=== PATIENT | male | born 1945 | race Caucasian/White ===

== ENCOUNTER 2018-02-15 12:02 | Day surgery (SDC) | payer MEDICARE, BC ==
[2018-02-12 08:31] VITALS: BP 150/87
[2018-02-12 09:11] LABS: ALANINE AMINOTRANSFERASE 33 U/L (12-78); ALBUMIN 3.9 g/dL (3.4-5.0); ANION GAP 10 mmol/L (5-15); CALCIUM 8.6 mg/dL (8.5-10.1); CHLORIDE 111 mmol/L (98-107); CREATININE 0.97 mg/dL (0.7-1.3)
[2018-02-12 09:13] LABS: ALKALINE PHOSPHATASE 56 U/L (45-117); BILIRUBIN,TOTAL 0.8 mg/dL (0.2-1.0); TOTAL PROTEIN 6.6 g/dL (6.4-8.2)
[~2018-02-15] VITALS: Ht 182.9 cm; Wt 118.7 kg
[~2018-02-15 12:02] MED LIST: ASPI-496 PO; IBUP-1221 PO; LISI-167 PO; ROSU5TAB PO
[2018-02-15] MEDS ORDERED: BACITRACIN 50,000 UNIT ONE (12:22)
[2018-02-15] MEDS ORDERED: BUPIVACAINE/PF-EPI 0.25% 1:200K ONE (12:22)
[2018-02-15] MEDS ORDERED: LACTATED RINGERS 1,000 ML IV SCH (12:23)
[2018-02-15] MEDS ORDERED: FENTANYL PF 250 MCG/5ML ONE (13:21)
[2018-02-15] MEDS ORDERED: MIDAZOLAM 1 MG/ML, 2ML ONE (13:21)
[2018-02-15] MEDS ORDERED: ACETAMINOPHEN 500 MG TABLET ONE (13:24)
[2018-02-15] MEDS ORDERED: GABAPENTIN 300 MG CAPSULE ONE (13:24)
[2018-02-15] MEDS ORDERED: ONDANSETRON ODT 8 MG ONE (13:24)
[2018-02-15] MEDS ORDERED: ROCURONIUM 10MG/ML,5ML ONE (14:14)
[2018-02-15] MEDS ORDERED: LIDOCAINE-MPF 2% ,5ML ONE (14:14)
[2018-02-15] MEDS ORDERED: PROPOFOL 10 MG/ML, 20ML ONE (14:14)
[2018-02-15] MEDS ORDERED: CEFAZOLIN 1,000 MG ONE ×3 (14:15)
[2018-02-15] MEDS ORDERED: DEXAMETHASONE 4 MG/ML, 1ML ONE ×2 (14:15)
[2018-02-15] MEDS ORDERED: BUPIVACAINE/PF 0.5% ONE (14:27)
[2018-02-15] MEDS ORDERED: EPINEPHRINE 1 MG/ML, 1ML ONE (14:28)
[2018-02-15] MEDS ORDERED: PHENYLEPHRINE 10 MG/ML ONE (14:47)
[2018-02-15] MEDS ORDERED: LABETALOL 5MG/ML, 20ML IV PRN (15:00)
[2018-02-15] MEDS ORDERED: MEPERIDINE/PF 25MG/0.5ML IVPush PRN (15:00)
[2018-02-15] MEDS ORDERED: LORazepam 2 MG/ML, 1ML IVPush PRN (15:00)
[2018-02-15] MEDS ORDERED: HYDROmorphone 1 MG/ML, 1ML IV PRN (15:00)
[2018-02-15] MEDS ORDERED: HALOPERIDOL 5 MG/ML IV PRN (15:00)
[2018-02-15] MEDS ORDERED: hydrALAzine 20 MG/ML, 1ML IV PRN (15:00)
[2018-02-15] MEDS ORDERED: OXYcodone 5 MG/5 ML ORAL.SOL UDC PO PRN (15:00)
[2018-02-15] MEDS ORDERED: PROMETHAZINE 25 MG/ML, 1ML IV PRN (15:00)
[2018-02-15] MEDS ORDERED: FENTANYL PF 100 MCG/2ML ONE ×2 (16:04→16:12)
[2018-02-15] MEDS ORDERED: KETOROLAC 30 MG/1 ML ONE (16:12)
[2018-02-15] MEDS ORDERED: OXYcodone 5 MG/5 ML ORAL.SOL UDC ONE (16:13)
[2018-02-15] MEDS: FENTANYL PF 100 MCG/2ML IV PRN ×2 (16:16→16:39)
[2018-02-15] MEDS ORDERED: KETOROLAC 30 MG/1 ML IVPush ONE (16:30)
[2018-02-15] MEDS ORDERED: MEPERIDINE/PF 50 MG/ML ONE (16:42)
== END 2018-02-15 18:45 | disposition home or self-care (01) ==
LOC: OUT 12:02
PROVIDERS: ATTEND Surgery
DX: K40.90 Unilateral inguinal hernia, without obstruction or gangrene, not specified as recurrent (principal); D17.6 Benign lipomatous neoplasm of spermatic cord; E78.00 Pure hypercholesterolemia, unspecified; I10 Essential (primary) hypertension; Z88.8 Allergy status to other drugs, medicaments and biological substances; E66.9 Obesity, unspecified
CPT/HCPCS: 36415; 49505; 80053; 93005; C1781; J0171; J0690; J1100; J1885; J2175; J2250; J2370; J2704; J3010; J3490; J7120

== ENCOUNTER 2020-03-12 06:52 | Day surgery (SDC) | payer MEDICARE, BC ==
[~2020-03-12] VITALS: Ht 185.4 cm; Wt 125.1 kg
[2020-03-12] MEDS ORDERED: BUPIVACAINE/PF 0.25% ONE (07:04)
[2020-03-12] MEDS ORDERED: EPINEPHRINE 1 MG/ML, 1ML ONE (07:04)
[2020-03-12] MEDS ORDERED: LIDOCAINE/PF 1%, 30ML ONE (07:04)
[2020-03-12 07:05] VITALS: BP 138/87
[2020-03-12] MEDS ORDERED: CHLORHEXIDINE 15 ML UDC MM ONE (07:30)
[2020-03-12] MEDS ORDERED: LACTATED RINGERS 1,000 ML IV SCH (07:30)
[2020-03-12] MEDS ORDERED: EZET10TA70 PO (07:48)
[2020-03-12] MEDS ORDERED: FLUT9.9S NS (07:48)
[2020-03-12] MEDS ORDERED: ZOLP10TA PO (07:48)
[2020-03-12 07:52] LABS: ALBUMIN 3.5 g/dL (3.4-5.0); ANION GAP 3 mmol/L (5-15); CALCIUM 9.1 mg/dL (8.5-10.1); CHLORIDE 114 mmol/L (98-107)
[2020-03-12 07:56] LABS: ALANINE AMINOTRANSFERASE 42 U/L (12-78); ALKALINE PHOSPHATASE 52 U/L (45-117); BILIRUBIN,TOTAL 0.6 mg/dL (0.2-1.0); CREATININE 0.93 mg/dL (0.7-1.3); TOTAL PROTEIN 6.3 g/dL (6.4-8.2)
[2020-03-12] MEDS ORDERED: FENTANYL PF 100 MCG/2ML ONE ×2 (08:44→10:11)
[2020-03-12] MEDS ORDERED: KETOROLAC 30 MG/1 ML ONE (08:50)
[2020-03-12] MEDS ORDERED: ONDANSETRON 2MG/ML, 2ML ONE (08:50)
[2020-03-12] MEDS ORDERED: GLYCOPYRROLATE 0.2MG/1ML, 5ML ONE (08:50)
[2020-03-12] MEDS ORDERED: DEXAMETHASONE 4 MG/ML, 1ML ONE (08:50)
[2020-03-12] MEDS ORDERED: CEFAZOLIN 1,000 MG ONE (08:50)
[2020-03-12] MEDS ORDERED: PROPOFOL 10 MG/ML, 20ML ONE (08:50)
[2020-03-12] MEDS ORDERED: HYDROmorphone 1 MG/ML, 1ML INJ IVPush PRN (09:00)
[2020-03-12] MEDS ORDERED: ACETAMINOPHEN 325 MG TABLET PO PRN ×2 (09:00→10:00)
[2020-03-12] MEDS ORDERED: LABETALOL 5MG/ML, 20ML IV PRN (09:00)
[2020-03-12] MEDS ORDERED: ONDANSETRON 2MG/ML, 2ML IVPush PRN ×2 (09:00→10:00)
[2020-03-12] MEDS ORDERED: OXYcodone 5 MG/5 ML ORAL.SOL UDC PO PRN ×2 (09:00→10:00)
[2020-03-12] MEDS ORDERED: hydrALAzine 20 MG/ML, 1ML IV PRN (09:00)
[2020-03-12] MEDS ORDERED: KETOROLAC 30 MG/1 ML IVPush SCH (10:00)
[2020-03-12] MEDS ORDERED: HYDROmorphone 1 MG/ML, 1ML INJ IM PRN (10:00)
[2020-03-12] MEDS ORDERED: PROMETHAZINE 25 MG/ML, 1ML IM PRN (10:00)
[2020-03-12] MEDS ORDERED: ACETAMINOPHEN 650 MG/20.3 ML UDC ONE (10:11)
[2020-03-12] MEDS ORDERED: OXYcodone 5 MG/5 ML ORAL.SOL UDC ONE (10:11)
[2020-03-12] MEDS: FENTANYL PF 100 MCG/2ML IV PRN ×2 (10:16→10:23)
== END 2020-03-12 11:50 | disposition home or self-care (01) ==
LOC: OUT 06:52
PROVIDERS: ATTEND Orthopaedic Surgery
DX: S83.242A Other tear of medial meniscus, current injury, left knee, initial encounter (principal); M67.52 Plica syndrome, left knee; M22.42 Chondromalacia patellae, left knee; M65.862 Other synovitis and tenosynovitis, left lower leg; I10 Essential (primary) hypertension; E78.5 Hyperlipidemia, unspecified; K21.9 Gastro-esophageal reflux disease without esophagitis; G47.30 Sleep apnea, unspecified; Z79.82 Long term (current) use of aspirin; Z79.899 Other long term (current) drug therapy; Z98.890 Other specified postprocedural states; Z82.49 Family history of ischemic heart disease and other diseases of the circulatory system; W01.0XXA Fall on same level from slipping, tripping and stumbling without subsequent striking against object, initial encounter; Y93.89 Activity, other specified; Y92.89 Other specified places as the place of occurrence of the external cause; Y99.8 Other external cause status
CPT/HCPCS: 29881; 36415; 80053; 93005; J0171; J0690; J1100; J1885; J2405; J2704; J3010; J3490; J7120